=== PATIENT | female | born 1990 | race African-American/Black ===

== ENCOUNTER 2016-11-22 08:00 | Day surgery (SDC) | payer MEDICAID ==
[~2016-11-22] VITALS: Ht 160 cm; Wt 78.9 kg
[~2016-11-22 08:00] MED LIST: CELEXA20 MG PO
[2016-11-22 08:27] VITALS: BP 114/68; Ht 160 cm; Wt 78.9 kg
[2016-11-22 09:03] LABS: HEMATOCRIT 30.2 % (36.0-48.0); HEMOGLOBIN 9.1 g/dL (12-16); MCH 22.8 pg (26.0-34.0); MCHC 30.1 g/dL (31.0-37.0); MCV 75.5 fL (80.0-100.0); MEAN PLATELET VOLUME 9.2 fL (7.4-10.4); RDW 15.9 % (11.5-14.5); WBC 4.9 10x3/uL (4.8-10.8)
--- NOTE | 2016-11-22 12:33 | NUR ---
[address] DR[address] ROD ROSARIO.
== END 2016-11-22 17:30 | disposition home or self-care (01) ==
LOC: D.PAN 08:00 → D.OPS 08:00 → D.PAN 10:00 → D.OPS 10:00
PROVIDERS: Anesthesiology
DX: K64.9 Unspecified hemorrhoids (principal); Z01.812 Encounter for preprocedural laboratory examination